=== PATIENT | male | born 1950 | race Caucasian/White ===

== ENCOUNTER → 2025-08-17 | Outpatient (CLI) | payer MEDICARE ==
[~2025-08-17] MED LIST: AEC81 PO; BUSP10TA3 PO; CARV25TA PO; CHOL50009 PO; CITA-108 PO; DEXL60CA3 PO; GABA-531 PO; IOHEXOL 350 MG/ML 100ML INFUS..BTL IV ONE; IOHEXOL-350 75 ML VIAL IV ONE; LISI40TA15 PO; ROSU40TA88 PO; TRAZ-185 PO
--- NOTE | 2025-08-18 11:45 | HMCIMG ---
CT ANGIO CHEST/THORAX AAA REASON: Thoracic aortic aneurysm, without rupture TECHNIQUE: Thin axial images through the chest were obtained during bolus intravenous administration of 100 ml of Omnipaque 350. Sagittal and coronal reconstruction images were performed. FINDINGS: The main pulmonary arteries and their first and second order branches have normal caliber and enhancement throughout. No intraluminal filling defect is identified. Thoracic aorta is unremarkable. Heart size is within normal limits. There is coronary calcification suggesting of coronary artery disease. There are surgical changes with closure of the foramen ovale. No pleural or pericardial effusion is identified. Lungs are clear. No pneumothorax is noted. There is no mediastinal or axillary lymphadenopathy. Limited evaluation of the upper abdomen is unremarkable. The gallbladder appears to be surgically absent. IMPRESSION: No evidence of pulmonary embolism or aortic dissection or aneurysm Coronary calcification suggesting of coronary artery disease Status post closure was surgical changes of foramen ovale.. CT was performed with one or more following dose reduction techniques: automated exposure control, adjustment of the mA and kv according to patient's size, or use of a iterative reconstruction technique.
== END | disposition home or self-care (01) ==
LOC: RAH 07:49
PROVIDERS: ATTEND Internal Medicine Cardiovascular Disease
DX: I71.20 Thoracic aortic aneurysm, without rupture, unspecified (principal); Z90.49 Acquired absence of other specified parts of digestive tract
CPT/HCPCS: 71275; Q9967